=== PATIENT | male | born 1950 | race African-American/Black ===

== ENCOUNTER 2019-08-18 08:30 | Emergency (ER) | payer OTHER, MEDICAID ==
[~2019-08-18] VITALS: Ht 165.1 cm; Wt 72.0 kg
[2019-08-18 09:14] VITALS: BP 143/87
[2019-08-18] MEDS ORDERED: IBUPROFEN 600MG TABLET PO STA (10:10)
[2019-08-18] MEDS ORDERED: LIDOCAINE 1%/EPI 1:100,000 10 ML VIAL IJ ONE (10:15)
[2019-08-18] MEDS ORDERED: BACITRACIN ZINC OINT UDPKT TOP ONE (10:15)
[2019-08-18] MEDS ORDERED: LIDOCAINE HCL/EPINEPHRINE 1%-EPI 1:100,000 20 ML VIAL INFIL SCH (12:00)
[2019-08-18] MEDS ORDERED: BACITRACIN 15GM TUBE TOP SCH (12:00)
== END 2019-08-18 12:51 | disposition home or self-care (01) ==
LOC: ER 08:39
DX: L72.3 Sebaceous cyst (principal)
CPT/HCPCS: 99283; J3490